=== PATIENT | male | born 1985 | race Caucasian/White ===

== ENCOUNTER 2018-03-08 15:26 | Emergency (ER) | payer OTHER ==
[~2018-03-08] VITALS: Ht 177.8 cm; Wt 99.8 kg
[2018-03-08 15:31] VITALS: BP 154/98
--- NOTE | 2018-03-08 15:35 | NUR ---
PT TAKEN BY WHEELCHAIR TO BED 9
--- NOTE | 2018-03-08 15:39 | NUR ---
32 YO M BIB SELF W/ C/O LOWER BACK PAIN RADIATING TO RT LEG. DENIES INJURY. AGGREVATED BY AMBULATING, STANDING, AND SITTING. PT AAOX4. GCS 15. CMS INTACT. RR EVEN AND UNLABORED. LUNGS CLEAR. ABD SOFT, NON-TENDER. ER MD JACKMAN NOTIFIED. PT NEEDS MET. SAFETY PRECAUTIONS IN PLACE. WILL CONTINUE TO MONITOR.
[2018-03-08] MEDS ORDERED: KETOROLAC 60 MG/2 ML VIAL IM ONE (16:05)
[2018-03-08] MEDS ORDERED: HYDROcodone/APAP 5/325 MG 1 TAB TAB PO ONE (16:05)
--- NOTE | 2018-03-08 16:10 | NUR ---
PT TAKEN TO XRAY AT THIS TIME VIA W/C.
--- NOTE | 2018-03-08 16:10 | NUR ---
PT TAKEN BY WHEELCHAIR TO XRAY
--- NOTE | 2018-03-08 16:19 | NUR ---
PT BACK FROM XRAY AT THIS TIME.
[2018-03-08 17:07] VITALS: BP 132/78
--- NOTE | 2018-03-08 17:08 | NUR ---
Patient discharged with v/s stable. Written and verbal after care instructions given and explained. Patient alert, oriented and verbalized understanding of instructions. Ambulatory with steady gait. All questions addressed prior to discharge. ID band removed. Patient advised to follow up with PMD. Rx of voltaren and vistaril given. Patient educated on indication of medication including possible reaction and side effects. Opportunity to ask questions provided and answered.
== END 2018-03-08 17:08 | disposition home or self-care (01) ==
LOC: MED 15:26
DX: M54.5 Low back pain (principal); G89.29 Other chronic pain
CPT/HCPCS: 72100; 96372; 99284; J1885